=== PATIENT | female | born 1955 | race Caucasian/White ===

== ENCOUNTER 2019-08-23 17:01 | Inpatient (IN) | payer BC, MEDICARE ==
[~2019-08-23] VITALS: Ht 157.5 cm; Wt 61.5 kg
--- NOTE | 2019-08-24 11:38 | NUR ---
Pt arrived via stretcher, this nurse called SV to get report. Pt being settled in to room 339, on O2 @ 2 LPNC.
[2019-08-24 12:41] VITALS: BP 124/64; PULSE 73; TEMP 97.8
--- NOTE | 2019-08-24 13:10 | NUR ---
Dr. Lake aware of pt's admission. [facility] nurse just called report.
--- NOTE | 2019-08-24 13:12 | NUR ---
Spoke with Stephan at length about IPR routine, policies, and plan of care. He states they are very happy she is here. Denies any further questions.
[2019-08-24] MEDS ORDERED: PREDNISONE20 MG PO (14:08)
[2019-08-24] MEDS ORDERED: MESTINON 6060 MG/TAB PO (14:09)
[2019-08-24] MEDS ORDERED: PROAIR HFA0.09 MG/AC IH (14:10)
[2019-08-24] MEDS ORDERED: IPRATROPIUM BROM3 M1 IH (14:12)
[2019-08-24] MEDS ORDERED: 00186-0370-20 IH (14:15)
[2019-08-24] MEDS ORDERED: RT SPIRIVA18 MCG IH (14:16)
[2019-08-24] MEDS ORDERED: CALCIUM 600MG+D1 TAB PO (14:38)
[2019-08-24] MEDS ORDERED: COREG 25MG25 MG/TAB PO (14:42)
[2019-08-24] MEDS ORDERED: PLAVIX 75MG TAB75 MG PO (14:43)
[2019-08-24] MEDS ORDERED: ENTRESTO 49 MG1 EACH PO (14:43)
[2019-08-24] MEDS ORDERED: ZYRTEC10MGCHEW PO (14:43)
[2019-08-24] MEDS ORDERED: FERROUSAL325 MG PO (14:44)
[2019-08-24] MEDS ORDERED: PRILOSEC 20MG20 MG PO (14:45)
[2019-08-24] MEDS ORDERED: FLONASEALLERGY NS (14:45)
[2019-08-24] MEDS ORDERED: SINGULAIR 110 MG/TAB PO (14:45)
[2019-08-24] MEDS ORDERED: ALDACTONE 25MG25 M1 PO (14:46)
[2019-08-24] MEDS ORDERED: CRESTOR 10MG10 MG PO (14:46)
--- NOTE | 2019-08-24 18:05 | NUR ---
Visited w/ pt about IPR, see assessment, has gauze/tegaderm dressings to two IV sites removed at SV to rt neck, no shadowing. ENGINE ASSEMBLY SUPERVISOR reports buttocks/coccyx area reddened. Right heel has dry ruptured blister appearing linear lesion about 4 cm, applied foam heel cup under gripper socks. Pt has lizbeth foot drop, elevated BLE on pillows and propped up feet with pillow and shortened foot of bed. Call lt in reach, O2@ 2 LPNC, large amount of phlegm, tissues in reach. Pt states she has no appetite but knows she needs to eat, pureed diet, requested pills crushed in chocolate pudding. Asked to bring Crestor from home as our pharmacy subs with Lipitor and pt states it causes severe leg weakness. Has used bedpan x2 with lg loose stools per ENGINE ASSEMBLY SUPERVISOR.
[2019-08-25 05:42] VITALS: BP 162/72; PULSE 81; TEMP 97.6
--- NOTE | 2019-08-25 06:26 | NUR ---
PT HAS BEEN CONTINENT MOST OF THE NIGHT. CPAP IN USE.
[2019-08-25 06:56] LABS: BASO % 0.1 % (0.0-2.0); EOS # 0.1 (0.0-0.7); EOS % 0.7 % (0-4.0); GRAN # 6.5 (1.4-6.5); LYMPH % 12.1 % (20.0-51.0); MEAN CELL VOLUME 100 fl (80.0-100.0); MEAN CORPUSCULAR HGB CONC 32 g/dl (33.0-37.0); MEAN PLATELET VOLUME 9.8 fl (7.4-10.4); MONO # 0.8 (0.1-0.6); MONO % 9.3 % (1.7-9.3); PLATELET COUNT 274 K/mm3 (130-400); RED BLOOD COUNT 2.85 M/mm3 (4.10-5.30); REDCELL DISTRIBUTION WIDTH-CV 13.2 % (11.5-14.5)
[2019-08-25 07:10] LABS: CALCIUM 8.9 mg/dL (8.4-10.2); CREATININE, serum 0.39 (0.52-1.25); MAGNESIUM 1.8 mg/dL (1.6-2.3); PHOSPHOROUS 2.8 mg/dL (2.5-4.5); POTASSIUM 3.8 mmol/L (3.4-5.0)
[2019-08-25 07:19] LABS: HEMATOCRIT 28.5 % (37.0-47.0); HEMOGLOBIN 9.1 g/dl (12.5-16.0); MEAN CORPUSCULAR HEMOGLOBIN 32 pg (27.0-31.0)
--- NOTE | 2019-08-25 09:21 | NUR ---
PT IS LAYING IN BED WITH 02 @2L/NC. PRESENT AND VERY CARING TOWARD PT. MEDS CRUSHED AND GIVEN IN CHOCOLATE PUDDING BY SPOUSE.BREAKFAST ORDERED. MEPILEX IN PLACE ON COCCYX AREA. NIGHT NURSE STATES IT IS A STAGE II. LUNG SOUNDS ARE DIMINISHED IN ALL AAREAS, PRANEETH LOWER LUNGS VERY DIMINISHED WITH MINIMAL TO NO AIR MOVEMENT NOTED.
--- NOTE | 2019-08-25 10:16 | NUR ---
Patient lives at home with her (Antione Lancaster [phone]) in [place], [place] and ultimately plans to discharge home with her spouse upon recovery from inpatient rehabilitation services. Patient was admitted to [facility] on 07/31/19 and was then intubated and transferred to [facility] on 08/01/19. The patient has been very weak physically with signs of gradual improvement. Patient uses a wheelchair for mobility assistance and also uses a CPAP machine, her primary care physician is Dr. Wisdom, her pharmacy is [facility] ([place]), and she does not have advance directive for healthcare on file at this time. Patient's son (Will Lancaster [phone]) is supportive of patient's needs as well. No further needs and social media marketing analyst will follow as needed.
--- NOTE | 2019-08-25 13:05 | NUR ---
PT'S PERITONEAL AREA IS REDDISH WITH PEELING SKIN. AREA CLEANED AND BARRIER CREAM PLACED. CALL LIGHT IN REACH
--- NOTE | 2019-08-25 14:59 | NUR ---
DID BIM SCORE WITH PT. PLACED IN CHART FOR ST. PT GIVEN ADMISSION PAPERWORK TO READ AND SIGN. SHE WANTS TO WAIT FOR HER TO READ INFORMATION.
[2019-08-25 16:40] VITALS: BP 126/57; PULSE 65; TEMP 98.1
[2019-08-26 04:04] VITALS: BP 145/78; PULSE 76; TEMP 97.4
--- NOTE | 2019-08-26 06:05 | NUR ---
PT IN BED. PT HAS CALLED FOR USE OF BEDPAN. CPAP IN USE UNTIL APPROX. 0430. O2 CONTINUES AT 2 liters/NC.
--- NOTE | 2019-08-26 12:53 | NUR ---
Returned pt's own meds to Stephan to take home, except for omeprazole and crestor. Pt inserted upper partial plate with enc to do so.
--- NOTE | 2019-08-26 17:47 | NUR ---
Pt adv to [facility] soft, ordered turkey and sweet potatoes, needed more gravy and maybe butter for next time, asked about ensure and given mixed with jero ice cream. Pills crushed in puree.
[2019-08-26 18:00] VITALS: BP 120/56; PULSE 93; TEMP 98.1
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
--- NOTE | 2019-08-27 02:19 | NUR ---
Resting in bed with eyes closed. No signs or symptoms of discomfort. Asked patient if she needed anything or wanted to reposition. Assisted patient in repositioning pillows. Patient denies further needs at this time. Head of bed remains elevated at approximately 80 degrees. Side rails are up, call light in reach.
[2019-08-27 05:00] VITALS: BP 146/56; PULSE 66; TEMP 98.7
--- NOTE | 2019-08-27 05:54 | NUR ---
Resting in bed with eyes closed. Opens eyes when name called out. Denies pain or any concerns at this time.
--- NOTE | 2019-08-27 06:08 | NUR ---
Uneventful through night. Able to verbalize when she needs to use bedpan to urinate and have bowel movement. Denies pain at this time. Tolerated CPAP throughout night with little difficulty once mask was adjusted properly. Expresses that she is tired this morning. Denies any further needs at this time.
--- NOTE | 2019-08-27 06:59 | NUR ---
Report provided to ANNALISA Lunsford.
--- NOTE | 2019-08-27 15:05 | NUR ---
Initial visit; Patient thanked Applied Computer Science Professor for looking in on her and offering encouragement and God's blessings. Patient was receptive to Applied Computer Science Professor keeping her in her prayers.
--- NOTE | 2019-08-27 15:59 | NUR ---
IV placed to left AC using 20 G needle. Patient went to have her CT scan completed and has now returned to her room. Awaiting results of scan.
[2019-08-27 17:47] VITALS: BP 149/61; PULSE 63; TEMP 98.9
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
--- NOTE | 2019-08-27 21:30 | NUR ---
Patient rests in bed and reports achyness from use of sit to stand lift to bilateral shoulders. HS meds along with tylenol reviewed and given crushed in pudding. Is familiar with HS meds. Powder applied to redness/peeling rash inner thighs and dario area after up via lift to BSC. BLE elevated on pillow and folded pillow to foot of bed to aid/prevent further foot drop.
--- NOTE | 2019-08-27 23:00 | NUR ---
CPAP applied with 2l bleed in o2. Patient reports tylenol helped for pain.
--- NOTE | 2019-08-28 03:03 | NUR ---
Patient rests with eyes closed. Respirations with ease.
--- NOTE | 2019-08-28 05:00 | NUR ---
Awakened for am med and cpap removed oxygen applied 2 Lpnc. Up to BSC via lift and voids. Back to bed and nurse assists with legs and reposition up in bed. Denies pain. Applies clean shirt and nurse applied pants for therapy.
[2019-08-28 05:24] VITALS: BP 152/66; PULSE 78; TEMP 99
--- NOTE | 2019-08-28 08:00 | NUR ---
PT ALERT AND ORIENTED X4. PT HAS FLAT AFFECT AND APPEARS DEPRESSED. PT HAS 2L O2 VIA NC AT THIS TIME. PT'S LUNGS NOTED TO HAVE RHONCHI AND EXP WHEEZE NOTED PRIOR TO BREATHING TREATMENT. SLIGHT EXP WHEEZE TO RIGHT BASE NOTED AFTER NEB TREATMENT. PT HAS PRODUCTIVE COUGH WITH THICK, YELLOW SPUTUM NOTED. NO EDEMA NOTED. PT DOES HAVE SLIGHT BILATERAL FOOT DROP.
--- NOTE | 2019-08-28 08:46 | NUR ---
DR ROBERTS NOTIFIED OF PULMONOLOGY CONSULT
--- NOTE | 2019-08-28 11:20 | NUR ---
[facility]
--- NOTE | 2019-08-28 13:20 | NUR ---
Reviewed Team Conference notes w/ pt, who stated she understood & agreed with the information. Informed her the team has not set a d/c date since she has only been here a few days, so will re-evaluate her progress next Monday. She was fine with this. Inquired if pt had any questions/concerns at this time, which she did not.
--- NOTE | 2019-08-28 14:30 | NUR ---
PT BEING PLACED ON IV ATB. 20G IV INSERTED TO LEFT HAND.
[2019-08-28 18:20] VITALS: BP 127/56; PULSE 65; TEMP 98
--- NOTE | 2019-08-28 21:00 | NUR ---
Patient rests in bed denies pain. HS meds along with tylenol for pain prevention reviewed and given crushed in pudding. Patient does HS care at bedside with set up. Up to BSC 2 assist pivot transfer. Is weak with pivot transfer back to bed and max 2 assist. Powder applied to reddened inner thighs and dario-area. BLE elevated on pillow and folded pillow placed at end of bed for further foot drop prevention.
[2019-08-28 21:56] LABS: PROCALCITONIN 0.02 ng/mL (0.00-0.09)
--- NOTE | 2019-08-29 02:29 | NUR ---
patient has been resting with eyes closed. CPAP on.
[2019-08-29 05:39] VITALS: BP 140/56; PULSE 65; TEMP 98.1
--- NOTE | 2019-08-29 15:41 | NUR ---
Attempted to visit w/ pt's while he was visiting but missed him. Contacted him via phone & provided him an update from the Team Conference. He stated he understood & felt like she has made a lot of progress. He also stated he is very pleased w/ the care she is receiving. Informed him that no d/c date has been set & will re-evaluate next week. Also told him that [employer] was update today & received another week certified. Asked if he had any questions/concerns at this time, which he did not.
[2019-08-29 16:59] VITALS: BP 146/63; PULSE 67; TEMP 97.6
--- NOTE | 2019-08-29 19:35 | NUR ---
Report from ANNALISA Peñaloza. Pt transferring with sit to stand lift, legs weak and may give out, two assist to BSC or pt rolls in bed for bedpan. Continent, calls appropriately. Plan to insert PICC tomorrow morning, pt signed consent, present and SUNIL Gomez RN answered questions. Pt c/o nausea after breakfast, offered TUMS, maalox given instead. Imodium given for loose stool after lunch. Reported to Dr. Holguin, ID. Yeast to dario area appears 50% improved with Desenex powder, still red but less peeling/moist. Doffed bottoms at suppertime to air. Floated heels on pillow, heel protector to rt heel, pillow to prop for lizbeth foot drop. Rt lungs squeaky. Supplemented poor eating with ensure. Report to ANNALISA Zapien.
--- NOTE | 2019-08-29 21:00 | NUR ---
PT SITTING UP IN BED. A&OX4. O2 2L NC. NO RESP DISTRESS. USING RESP PICKLE PRN. PT RELATES USUALLY HAS BILAT SHOULDER PAIN BUT NOT NOW. IV TO LT HAND POSITIONAL. NS FLUSHES SLOWLY. HAS SOME OLD BLOOD UNDER TEGADERM WITH SOME ECCYMOSIS NOTED. NO PAIN. IV ABT INFUSING. ACCUCHECK WNL. NO SSI. TOOK 50% OF CHOCOLATE ENLIVE. CARLOZ RECTAL AREA INFLAMED. LEFT DIAPER/BRIEFS OFF FOR HEALING. PT USED BEDPAN. HAD URINE WITH LOOSE STOOL. GAVE IMMODIUM. SEE MAR. DESENEX POWDER APPLIED AFTER CLEANING. CALL LIGHT IN REACH. BED ALARM SET.
--- NOTE | 2019-08-29 22:04 | NUR ---
IV TO LT HAND LEAKING BLOOD. NO LONGER IN VEIN. COMPLETED IV ANTIBIOTIC BEFORE INFILTRATION. WILL START 0230 DOSE TO NEW SITE AT THAT TIME.
--- NOTE | 2019-08-30 02:22 | NUR ---
RESTARTED INT NEEDLE 22GA X1 ATTEMPT PER ELZBIETA CHARGE NURSE. IV ABT STARTED WITHOUT DIFFICULTY.
[2019-08-30 05:29] VITALS: BP 142/52; PULSE 74; TEMP 98
--- NOTE | 2019-08-30 05:40 | NUR ---
PT VOIDED PER BEDPAN. PERIRECTAL AREA STILL RED. CLEANED AND DRY. POWDER APPLIED. CHANGED INTO GOWN FOR PROCEDURE THIS AM. CPAP OFF AT THIS TIME. O2 2L N/C STARTED. PT DENIES NEED FOR PAIN MED. PT ALITTLE AGITATED THIS AM. CALL LIGHT IN REACH. BED ALARM SET.
--- NOTE | 2019-08-30 10:45 | NUR ---
Followed up on request for medical records from [facility]. Saw nurse Ritika's note, called MR and they will fax records/reports to [facility], then staff transferred call to staff who uploads to the cloud. Requested Chest x-rays and CTs and an echo that was done in July per Dr. Lezama's and Dr. Holguin's request.
--- NOTE | 2019-08-30 11:31 | NUR ---
Discussed with lab and then notified Dr. Hummel's office that hospital is unable to do ACHR Blocking antibodies nor voltage-gait calcium antibodies tests. Aware. He will f/u these labs as OP.
[2019-08-30 19:20] VITALS: BP 144/57; PULSE 66; TEMP 98.2
--- NOTE | 2019-08-31 04:00 | NUR ---
At bedside to give IV ABX. Wearing CPAP; no complaints or concerns at this time.
[2019-08-31 05:40] VITALS: BP 150/60; PULSE 72; TEMP 97.7
--- NOTE | 2019-08-31 07:32 | NUR ---
Report given to ANNALISA Jo. Patient care transfered.
--- NOTE | 2019-08-31 10:07 | NUR ---
Patient currently at group therapy at this time. Patient used call light this morning and wanted to be scooted up in bed. This nurse asked her if she was able to help with this task and she said that she was not. She was a two assist with scooting her up in bed so that she could eat her breakfast. Patient required a sit to stand when transferring to the [facility]. She uses her call light effectively. Denies pain this am. Will continue to monitor.
[2019-08-31 10:11] LABS: TB GOLD INTERPRETATION Negative (Negative)
--- NOTE | 2019-08-31 11:49 | NUR ---
Patient's is visiting at this time. Patient is lying in bed, alarm on, call light in reach awaiting her lunch. Patient was with therapy this morning so did not get a chance to drink her nutrition drink. She said that she would try to drink it later today. reported that he feels his is not ready to go home yet and was nervous about what the insurance companies will say about her being able to continue with therapies here. This nurse visited with patient and about this and they know that if she is making progress she will more then likely be able to continue to stay for aother week. But they were told that it is dependent on the insurance companies. They voiced understanding. Will continue to monitor.
[2019-08-31 17:21] VITALS: BP 154/60; PULSE 68; TEMP 98.4
--- NOTE | 2019-08-31 18:20 | NUR ---
Patient requested for this nurse to get her a warm wash cloth, hand towel, toothbrush and toothpaste so she could clean her partials and brush her teeth. Patient is currently do all the cleaning herself - required set up only.
[2019-09-01 04:42] VITALS: BP 162/61; PULSE 64; TEMP 97.3
--- NOTE | 2019-09-01 05:05 | NUR ---
Patient slept well overnight, remained alert and oriented throughout the shift. Patient has denied pain when questioned. Patient used sit to stand lift to void, she was continent. IV antibiotics administered per order into her double lumen PICC line. Patient denied needs at this time, call light within reach.
--- NOTE | 2019-09-01 13:06 | NUR ---
Patient resting in bed at this time, call light in reach and bed alarm is on. Patient tolerating diet well this shift. Denies quetions at this time.
[2019-09-01 16:31] VITALS: BP 149/56; PULSE 66; TEMP 97.6
--- NOTE | 2019-09-01 19:58 | NUR ---
Patient was a myb-uv-[id number] lift with transfers to the toilet multiple times today. She had two brown soft BM's today and required staff to wipe her. Powder placed on dario area. IV ABT was given as ordered. Patient has been taking small pills whole with applesauce and still having her larger pills crushed. Reported off to night nurse.
--- NOTE | 2019-09-01 20:30 | NUR ---
PT RESTING IN BED. O2 2L NC. NO RESP DISTRESS. GENERALIZED WEAKNESS WITH ACHINESS. SEE MAR FOR PAIN MEDS. BORA PICC FLUSHES WELL. PERIRESTAL YEAST INFECTION IMPROVING WITH DESENEX POWDER AFTER CARLOZ CARE. SEE COMPLETED ASSESSMENT. CALL LIGHT IN REACH. BED ALARM SET.
[2019-09-02 05:32] VITALS: BP 149/64; PULSE 65; TEMP 98.2
--- NOTE | 2019-09-02 05:48 | NUR ---
PT NOW OFF CPAP AND ADDED 1L NC O2. PT RETURNS TO SLEEP. CALL LIGHT IN REACH. BED ALARM SET. DENIES NEEDS.
--- NOTE | 2019-09-02 08:09 | NUR ---
Report from ANNALISA Zapien. Pt ate breakfast in bed, max assist with donning briefs and pants while pt turned in bed. Rt heel protector in place, dry lesion intact, gripper socks on, O2 @ 2l PNC. Pt took all morning pills whole, one at a time in applesauce, except crushed large calcium tab.
--- NOTE | 2019-09-02 13:15 | NUR ---
Visited w/ pt. She stated the weekend was long but okay. She did inquire about being able to stay longer & explained that SW will send updated information on her progress to insurance on but shouldn't be a problem as long as she continues to make progress. Will continue to visit w/ pt & provide support & d/c planning.
[2019-09-02 18:25] VITALS: BP 145/62; PULSE 65; TEMP 98.6
--- NOTE | 2019-09-02 20:05 | NUR ---
Pt advanced to general diet, assisted with cutting up grilled chicken breast. Pt in bed with SCDs to BLE and heel protector to RLE and pillow propping up for foot drop, call lt in reach. Report to ANNALISA Peñaloza.
--- NOTE | 2019-09-02 20:45 | NUR ---
HS meds all reviewed and taken whole 1 at a time without problems. Applesauce given in case needs to utilize to aid with swallow. Rests in bed. RT in and applied CPAP for the night. Denies pain or needs.
--- NOTE | 2019-09-03 02:02 | NUR ---
Patient has been resting with eyes closed. Awakened for IV antibiotic and returns to resting.
--- NOTE | 2019-09-03 05:00 | NUR ---
Awakened for vitals and uses bedpan per PROJECT ANALYST. Denies further needs. Returns to resting with eyes closed.
[2019-09-03 05:13] VITALS: BP 157/64; PULSE 67; TEMP 98.2
--- NOTE | 2019-09-03 11:12 | NUR ---
Patient attending therapies at this time. Patient was given antibiotic this morning, tolerated well. Denied pain this AM. Denied questions. Will continue to monitor.
--- NOTE | 2019-09-03 15:25 | NUR ---
Patient resting in bed at this time, call light in reach and just unhooked her IV ABT and flushed picc line. Patient tolerated with no discomfort observed. Patient denies pain at this time.
[2019-09-03 15:27] VITALS: BP 123/57; PULSE 74; TEMP 98
--- NOTE | 2019-09-03 17:00 | NUR ---
Patient educated on the need to not use the bed de jesus with her. she voiced understanding. Staff was instructed to elevate the bed when transferring from the bed to standing position using the walker. This nurse brought in a different stool riser and elevated it to a higher postion so that when she transferred from toilet to standing position it would be easier for her to have leverage to stand. Patient voiced understanding. Staff was educated on this.
--- NOTE | 2019-09-03 18:05 | NUR ---
Patient attended all therapies today. She is currently lying in bed with by her side. Call light in reach and bed alarm is on.
--- NOTE | 2019-09-03 20:00 | NUR ---
HS meds all reviewed along with tylenol for pain and takes 1 at a time without problems. Assisted up 2 assist to BSC and bears wt/pivots well. Patient removes pants and attends and applies new pullup/takes more time but does with encouragement. Patient was able to pull attends up most of the way. Rests self back in bed. BLE elevated on pillow. Takes 95% of enlive for snack.
--- NOTE | 2019-09-03 23:00 | NUR ---
Rests in bed with cpap on. States tylenol helped for pain.
[2019-09-04 05:27] VITALS: BP 155/60; PULSE 65; TEMP 98.9
--- NOTE | 2019-09-04 05:45 | NUR ---
Patient rested with eyes closed/cpap on other than awakened for IV med.
--- NOTE | 2019-09-04 12:35 | NUR ---
Pt was wanting to leave for a while, so reviewed the Team Conference notes w/ him. Informed him the team feels pt continues to make progress, which he stated he was glad to hear & he feels she has been progress. Informed him the team would like to re-evaluate again next Monday & schedule a Family Conference afterwards. He state that would be fine w/ him. He was very relieved to know she would be staying another week. Did remind him that SW needs to send update to insurance tomorrow but don't see why they would not give us another week. He again was relieved & happy to hear.
--- NOTE | 2019-09-04 16:45 | NUR ---
Reviewed Team Conference notes w/ pt. She stated she understood & agreed w/ current level of functioning. Informed her that we have not set a d/c date but will re-evaluate next Monday, which she was fine w/. Told her SW had talked to her earlier & have tentatively scheduled for a pt/family conference next Monday. She had no questions/concerns at this time.
[2019-09-04 18:00] VITALS: BP 156/60; PULSE 75; TEMP 98
--- NOTE | 2019-09-04 18:00 | NUR ---
Patient was transferred multiple times today with just a pivot transfer using gait belt. It still took two staff members at times. Patient able to pull pants up and down herself.
--- NOTE | 2019-09-04 18:50 | NUR ---
Patient attended all therapies today. Tolerate antibiotics this shift. No episodes of nausea today. Denied pain. Patient had a family meeting this afternoon and voiced that it went well. Patient's dario area continues to improve not as red. Will continue to use Desenex powder. Right heel old blister has not changed in shape and there are no signs of irritation today. she continues to wear her heel protector. Patient tolerating her regular diet and has been taking her pills whole with applesauce or just water. The one larger pill she does still like to have it crushed and placed in applesauce.
--- NOTE | 2019-09-04 21:00 | NUR ---
PT RESTING IN BED AFTER USING SIT TO STAND LIFT FOR BSC. VOIDING WITHOUT DIFFICULTY. RT GROIN/CARLOZ AREA STILL SL PINK FROM YEAST INFECTION BUT IMP[ROVING. WEARING BRIEFS FOR OCCATIONAL STRESS INCONTINENCE. TYLENOL GIVEN FOR GENERAL ACHES PER REQUEST. CALL LIGHT IN REACH. BED ALARM SET.
[2019-09-05 06:08] VITALS: BP 159/66; PULSE 71; TEMP 98.3
--- NOTE | 2019-09-05 11:20 | NUR ---
Report from ANNALISA Zapien. Pt ate breakfast in bed sitting up. On room air. Tylenol given for back pain 2/10 at breakfast. PICC without complications. Pt requested large Oscal tab be split in half, taken with applesauce, had mild difficulty with omeprazole capsule that she wanted to attempt to swallow whole. Pt states SCDs were on in the night. Alert, pleasant.
[2019-09-05 11:48] LABS: ANTI MUSK ANTIBODY XXX
[2019-09-05 15:00] VITALS: BP 141/58; PULSE 70; TEMP 98.3
--- NOTE | 2019-09-05 19:39 | NUR ---
Pt's family visited today. Pt pivot transferred to BSC, continent, tylenol for pain, remained on room air through shift. Discussed with Dr. Calix how to transition pt off/home with CPAP as she did not use one at home, will f/u with SW tomorrow.
[2019-09-06 03:58] VITALS: BP 152/58; PULSE 63; TEMP 98.4
--- NOTE | 2019-09-06 07:55 | NUR ---
Report from ANNALISA Zapien. Pt ate sitting up in bed, set up for oral cares, glasses in place, pt reports wearing SCDs prior to now. Cont to need set up assist for meals to open some containers. A&O, pleasant, tylenol for pain 02/03. Call lt in reach, bed alarm on, IV abx infusing to PICC which is working well.
--- NOTE | 2019-09-06 12:00 | NUR ---
PICC intact right upper arm with sterile dressing change done with insertion site cleansed with chloraprep x 1, chlorhexidine impregnated disk applied, skin prep, stat lock, and tegaderm applied. no signs or symptoms of IV complications noted. no concerns voiced. re-wrapped with tiffani to protect catheter.
[2019-09-06 17:03] VITALS: BP 172/66; PULSE 70; TEMP 98.7
--- NOTE | 2019-09-06 19:43 | NUR ---
Report to ANNALISA Bailey. Pt's visited today, pt pivot transferred with STOCK CUTTER to BSC this shift. Took pills with thin liquids or ate puree after. In bed, alarm on, call lt in reach.
--- NOTE | 2019-09-07 00:40 | NUR ---
WAS TOLD IN REPORT THAT THE PT DOESN'T HAVE A CPAP AT HOME. THEREFORE; PT DOES NOT NEED TO WEAR THE CPAP. I DISCUSSED WITH PT THAT IF SHE FELT COMFORTABLE WITHOUT WEARING THE CPAP TONIGHT THAT SHE IS NOT REQUIRED TO WEAR IT. HOWEVER, IF SHE FELT THAT SHE NEEDS TO WEAR IT SHE CAN CALL THE NURSE AND I CAN COME PUT IT ON HER IF NEED BE.
--- NOTE | 2019-09-07 02:30 | NUR ---
PATIENT DOING WELL TONIGHT. ALERT AND ORIENTED. DENIES PAIN AT THIS TIME. ABX INFUSING IN BORA PICC LINE. PICC LINE FLUSHING GOOD BOTH LINES. PATIENT UP TO COMMODE AND HAD BLACK SMALL HARD BM. SEE ASSESSMENT. NO FURTHER NEEDS AT THIS TIME.
[2019-09-07 04:06] VITALS: BP 157/61; PULSE 73; TEMP 98.5
--- NOTE | 2019-09-07 16:30 | NUR ---
PT HAS DONE WELL TODAY. VOICED NO COMPLAINTS OF PAIN OR NAUSEA. HAS NAPPED THIS AFTERNOON. ATE ALMOST NO BREAKFAST THIS AM. LUNCH SHE DID WELL. ABLE TO STAND AND SHE IS PRETTY STEADY WITH STANDING. ABLE TO CLEAN HERSELF AFTER TOILETING. TRANSFERS WELL TO BED AND NEEDS SOME ASSIST TO BRING BOTH LEGS INTO BED.
--- NOTE | 2019-09-07 16:35 | NUR ---
PICC LINE TO RIGHT UPPER ARM FLUSHED BRANDON TODAY BUT IT DID FLUSH. GOOD BLOOD RETURN EVEN IF SLUGGISH
[2019-09-07 17:05] VITALS: BP 151/66; PULSE 71; TEMP 98.6
--- NOTE | 2019-09-08 01:43 | NUR ---
PATIENT DOING WELL TONIGHT. TRANSFERRED TO BEDSIDE COMMODE AND HAD SMALL BROWN FORMED BM. PATIENT ALSO HAD UNMEASURED VOID. MINIMAL REDNESS NOTED TO PERIAREA, PT REFUSED DESENEX POWDER AT THIS TIME. REFUSED HER SCDS ALL NIGHT. PICC LINE TO BORA PATENT AND FLUSHES WITH GOOD BLOOD RETURN IN BOTH LINES. DENIES PAIN. WILL CONTINUE TO MONITOR.
[2019-09-08 04:33] VITALS: BP 166/70; PULSE 70; TEMP 98.1
--- NOTE | 2019-09-08 08:34 | NUR ---
Report from ANNALISA Bailey. Pt eating breakfast in bed, alarm turned on, glasses and partial plate in place, yellow wristband in place, call lt in reach. Took pills whole with thin liquids, Oscal cut in half, applesauce as needed for pills. Brought oral hygiene items to tray. PICC without complications.
--- NOTE | 2019-09-08 11:18 | NUR ---
Pt was assisted to BSC by JANITOR CUSTODIAN, pt managed toileting tasks with set up, returned to bed per pt request, visitors here. Tylenol for pain.
[2019-09-08 16:19] VITALS: BP 160/74; PULSE 64; TEMP 97.7
--- NOTE | 2019-09-08 19:11 | NUR ---
Pt in bed, alarm on, call lt in reach. Tylenol for pain at supper time. Report to ANNALISA Bailey.
--- NOTE | 2019-09-09 01:54 | NUR ---
PATIENT DOING WELL TONIGHT. HAS BEEN UP TO BEDSIDE COMMODE X1 ASSIST. HAD UNMEASURED VOID. RETURNED TO BED. PATIENT DENIES PAIN AT THIS TIME. RUE PICC LINE FLUSHED AND HAD BLOOD RETURN. SEE ASSESSMENT. NO FURTHER NEEDS AT THIS TIME.
[2019-09-09 03:13] VITALS: BP 167/65; PULSE 92; TEMP 97.5
--- NOTE | 2019-09-09 08:50 | NUR ---
Assessment completed, alert/oriented, vital signs stable, denies pain or discomfort, report her cough is improving and is producing less sputum/ reports what she is still couhging up is now just a light pale yellow, lungs are CTA/ diminshed bases with a little coarsness to LLL, encouraged deep breathing and flutter valve use, IV abx given via her PICC line/ 2 more days of abx tx left, she is up in chair and has had breakfast, PT in now to work with her
--- NOTE | 2019-09-09 14:05 | NUR ---
Visited w/ pt. She stated she had a good weekend & had several visitors, including her sister who brought her pagan. Pt had questions about the pt/family conference & what it was about, so explained it to her. Pt was very up beat today & talkative. Will continue to follow & provide support.
--- NOTE | 2019-09-09 14:39 | NUR ---
Contacted pt's , Stephan, & spoke w/ him about the pt/family conference on 09/11/19. Asked him if 10:30 am would work for him & he told SW that it would.
[2019-09-09 15:50] VITALS: BP 163/62; PULSE 71; TEMP 98.4
[2019-09-10 03:50] VITALS: BP 157/63; PULSE 73; TEMP 97.5
--- NOTE | 2019-09-10 04:10 | NUR ---
Patient has rested well this night. Requires one assist with transfers and ambulation to the bathroom. Denies pain throughout shift. Takes medications whole with no difficulty. PICC to BORA. Lung sounds diminished and productive cough noted. Patient states the cough is reducing in frequency. Will continue to monitor.
[2019-09-10 16:04] VITALS: BP 150/58; PULSE 66; TEMP 98.1
--- NOTE | 2019-09-10 16:33 | NUR ---
Patient resting in bed at this time, call light in reach and bed alarm is on. Patient denied pain at this time. Tolerating diet well. Attended all therapies today.
--- NOTE | 2019-09-10 19:53 | NUR ---
Maria is currently resting in bed, call light in reach and bed alarm is on. Patient was a pivot transfer from bed to BSC and BSC to bed with one person, gait belt and walker. Patient wearing a brief and does have some urge incontinence at times, was able to wipe herself. She ate her food independently.
--- NOTE | 2019-09-10 22:00 | NUR ---
Patient up to BSC mod one assist with walker. Legs weak from sit to stand. Voids and manages all toileting tasks. Rests back in bed. HS meds along with tylenol reviewed and given. SCD's on. Declines snack and HS care at this time.
--- NOTE | 2019-09-11 01:14 | NUR ---
PT DOES NOT HAVE A CPAP AT HOME AND DOESN'T FEEL THE NEED TO KEEP ONE IN HER ROOM IF SHE DOESN'T NEED TO USE IT. THEREFORE THE CPAP OF OURS WAS TAKEN OUT OF THE PT ROOM. PT WAS FINE ON RA THOMAS WELL NO DISTRESS NOTED WILL CONTINUE TO MONITOR AND ASSESS
[2019-09-11 03:21] VITALS: BP 163/60; PULSE 63; TEMP 98.5
--- NOTE | 2019-09-11 03:29 | NUR ---
PATIENT UP TO BSC "THINK I'VE BEEN RESTING".
--- NOTE | 2019-09-11 10:30 | NUR ---
A Family Conference was conducted with pt & her , Stephan. Also present was PT, OT, ST, & Manager Park/SW. Manager Park/SW started by explaining the purpose of the meeting. The therapists explained how pt has been functioning & making good progress, which they were very pleased to hear. Informed them the team would like to re-evaluate again next Monday, which they were fine w/. They asked questions which team answered. Pt & family are pleased with progress & care pt is receiving.
[2019-09-11 15:57] VITALS: BP 148/60; PULSE 60; TEMP 98.3
--- NOTE | 2019-09-11 19:31 | NUR ---
Patient resting in bed at this time. She attended all therapies today, call light in reach and bed alarm is on. Maria denied pain this shift. She had her last dose of her antibiotic. This nurse received a call from Infectious Disease physician and he said to make sure to watch for any increased coughing or shortness of breath with patient following this last dose. This nurse voiced understanding. This was communicated to the night nurse. Patient has had some coughing today, but very minmal and sputum is now clear and no longer yellow. Will continue to monitor.
--- NOTE | 2019-09-11 21:00 | NUR ---
HS meds all reviewed and given along with tylenol for mild pain across back. Patient up with assist to BSC and voids/manages all toileting tasks. Has much difficulty standing after multiple attempts and heavy mod assist to stand. Rests self back in bed. Nurse noted patchy light red rash all over back but none to frontal or extremities. Powder applied. Will monitor.
--- NOTE | 2019-09-12 02:46 | NUR ---
PATIENT HAS BEEN RESTING WITH EYES CLOSED. RESPIRATIONS WITH EASE.
[2019-09-12 05:14] VITALS: BP 169/71; PULSE 62; TEMP 98.2
--- NOTE | 2019-09-12 05:17 | NUR ---
PATIENT STATES "I MUST HAVE SLEPT". UP TO BSC AND BACK TO BED. DENIES PAIN.
--- NOTE | 2019-09-12 08:00 | NUR ---
SEE SHIFT ASSESSMENT.
[2019-09-12 08:21] LABS: MYASTHENIA GRAVIS ACHR BINDING XXX; MYASTHENIA GRAVIS ACHR MODULA XXX
--- NOTE | 2019-09-12 09:57 | NUR ---
DR. MARTIN CALLED AND NOTIFIED OF RASH THAT IS ON THE PATIENTS BACK. IT STARTED OVERNIGHT AND IS NOW WRAPPING AROUND THE PATIENTS SIDED AND UNDERNEATH HER BREASTS. PATIENT STATES THAT IT IS NOT CURRENTLY ITCHING, BUT THAT IT WAS ITCHY LAST NIGHT.
[2019-09-12 18:00] VITALS: BP 142/53; PULSE 64; TEMP 97.5
--- NOTE | 2019-09-12 18:59 | NUR ---
REPORT GIVEN TO ANNALISA BREWSTER.
--- NOTE | 2019-09-13 01:55 | NUR ---
PATIENT DOING WELL TONIGHT. TOOK SCHEDULED MEDS WITHOUT ISSUE. REQUESTED TYLENOL FOR MILD PAIN. PICC TO BORA IS PATENT AND FLUSHES WITH GOOD BLOOD RETURN. RASH TO BACK NOTED, NO SIGNIFICANT CHANGES. WILL CONTINUE TO MONITOR.
[2019-09-13 03:37] VITALS: BP 176/65; PULSE 72; TEMP 97.8
[2019-09-13 16:38] VITALS: BP 164/58; PULSE 58; TEMP 98
--- NOTE | 2019-09-14 02:56 | NUR ---
PT SLEEPING. NO RESP DISTRESS.
[2019-09-14 05:46] VITALS: BP 170/62; PULSE 63; TEMP 98.7
[2019-09-14 15:54] VITALS: BP 178/63; PULSE 59; TEMP 97.8
--- NOTE | 2019-09-14 16:47 | NUR ---
Report from ANNALISA Zapien. Pt attended group therapy in wheelchair. Flonase and tylenol given per pt request. Desenex powder to rash on back appears to be resolving. TECHNOLOGY AUDITOR assisted pt to BSC. Sputum is light yellow, mucousy and moderate amounts. Visitors came today. On RA all day.
--- NOTE | 2019-09-14 17:09 | NUR ---
Stephan arrived for visit.
--- NOTE | 2019-09-14 17:53 | NUR ---
Pt off unit in wheelchair with Stephan
--- NOTE | 2019-09-14 19:54 | NUR ---
A&OX4. RESTING IN BED. ASISTED WITH HS CARES. TRANSFERRED TO BSC. UNSTEADY. VOIDED CLEAR JESUS URINE. HAS GENERAL ACHES. WANTS TYLENOL AT HS. BACK TO BED. SEE SHIFT ASSESSMENT. READY FOR BED. CALL LIGHT IN REACH. BED ALARM SET.
[2019-09-15 06:26] VITALS: BP 166/70; PULSE 65; TEMP 98.2
--- NOTE | 2019-09-15 08:34 | NUR ---
Report from ANNALISA Zapien. Pt calls to toilet, continent of per MAURILIO Wilder. Set up for oral cares, own Gold Coello powder to back, rash improved, slight splotchy areas to flank, not raised. Tylenol for mid back ache. Takes pills one at a time with applesauce. Reviewed with pt how to call room service and ask what alternatives are available.
[2019-09-15 16:28] VITALS: BP 156/56; PULSE 61; TEMP 98.2
--- NOTE | 2019-09-15 18:39 | NUR ---
Pt called to toilet, pivot to BSC per MAURILIO Wilder. Meño states earlier today when pt attempted returning to bed after lunch pt's legs gave out and would have fallen.
--- NOTE | 2019-09-15 20:36 | NUR ---
Report received from ANNALISA Stuart. Patient resting in bed. Assessment complete. Patient up to BSC. Requesting tylenol. Patient assisted back into bed. PM medications given as well as tylenol. Now ready for bed. Call light within reach. Bed alarm on.
--- NOTE | 2019-09-16 05:45 | NUR ---
Patient had uneventful night. Resting in bed. Up to BSC x2. One small formed BM. Denies pain and only requested tylenol once at beginning of shift. Bed alarm on. Call light within reach.
[2019-09-16 06:08] VITALS: BP 181/64; PULSE 62; TEMP 97.9
--- NOTE | 2019-09-16 07:02 | NUR ---
Report given to ANNALISA Lunsford
--- NOTE | 2019-09-16 07:58 | NUR ---
Patient reports sleeping pretty well last night. Patient reported a rash over the weekend on her back, but Dr. Calix observed this morning and no rash was seen. Patient has had some itching to the area and she has been putting on Desenex power with good effect. No redness or rash was seen this morning. Patient able to take pills a few at a time with just sips of water. Requesting some Tylenol this morning reporting some back pain. Will continue to monitor.
--- NOTE | 2019-09-16 09:47 | NUR ---
Patient reported to PT this morning that she was not liking the meals. Patient has been eating over 50% of her meals as was observed over the weekend. Dietary was called to discuss menu with patient. Patient was wondering what the alternative menu was for her to choose from. Isatu in Dietary will address these questions. Patient did report some middle of the back pain, and was given prn pain Tylenol. She is currently resting in bed, call light in reach and bed alarm is on.
--- NOTE | 2019-09-16 11:00 | NUR ---
SW attempted to meet with the patient, the patient was out to physical therapy. SW will continue to follow.
[2019-09-16 16:54] VITALS: BP 158/65; BP 1582/65; PULSE 62; TEMP 98.6
--- NOTE | 2019-09-16 21:00 | NUR ---
Patient returned to bed via wheelchair from the bathroom. Alert and oriented x 4. Reports pain in between her shoulders and tylenol reviewed and given with HS meds. Declines snack or needs at this time.
--- NOTE | 2019-09-17 02:43 | NUR ---
Patient has been resting quietly in bed. Respirations with ease.
[2019-09-17 04:04] VITALS: BP 160/61; PULSE 60; TEMP 97.3
--- NOTE | 2019-09-17 06:20 | NUR ---
Reports she slept well through the night. Denies needs.
--- NOTE | 2019-09-17 08:12 | NUR ---
Patient resting in bed at this time, call light in reach awaiting for therapy to arrive. Denies pain at this time.
--- NOTE | 2019-09-17 11:40 | NUR ---
At 11:40 AM patient Jumana Lancaster had an assisted fall to the floor. She was in her patient room and NUVIA Peralta was assisting patient from bed side commode to a standing position to transfer patient to her bed. Patient was rocking back and forth or back to front to get momentum to stand up from bed side commode and when she started standing her legs gave out on her. NUVIA/Kathryn held on to patient's gait belt and lowered patient to the floor slowly on her bottom. Patient was then assisted by NUVIA/Kathryn to a standing position. Kathryn reported that she stood behind the patient and squatted down and used her legs to assist patient up in a standing position. Patient was able to assist with standing, but aid reported that she used 80% of her strength to assist patient. Kathryn reported that she would have called for assistance if she felt that she needed help with lifting patient. Patient then used her walker and returned to her bed to eat lunch with the aid Kathryn. This nurse assessed patient and she reported that she did not fall, but rather just was guided down to the floor and she was not injured or in pain. Patient had her fall bracelet on, had her slip proof socks on and used her call light appropriately for staff to assist her with her ambulation. Patient currently resting in her bed eating lunch, her call light is in reach. Call placed to Coverage Specialist Yulia reporting this incident @ 11:55 AM. Call placed to Surgical Charge Nurse Oni @ 12:[address] Calix @ 12:05 PM (Leaving a message) reporting the incident. VSS: BP 152/62; P 62; T 98.0; R 16; Oxygen 97% RA.
[2019-09-17 11:46] VITALS: BP 152/62; PULSE 62; TEMP 98
--- NOTE | 2019-09-17 12:57 | NUR ---
Patient resting in bed at this time awaiting her afternoon therapy. Will continue to monitor.
[2019-09-17 17:15] VITALS: BP 158/60; PULSE 54; TEMP 97.9
--- NOTE | 2019-09-17 17:42 | NUR ---
Patient resting in bed reading a book at this time. Patient tolerating meals this shift not eating all of them, but about 50%.
--- NOTE | 2019-09-17 20:50 | NUR ---
Patient rests in bed watching TV. Alert and oriented x 4. Reports pain down left side of back possibly from nu-step in therapy. HS meds along with tylenol reviewed and taken 1-2 at a time. Declines SCD's at this time.
--- NOTE | 2019-09-18 02:12 | NUR ---
Rests with eyes closed respirations with ease.
[2019-09-18 03:31] VITALS: BP 171/65; PULSE 65; TEMP 97.8
--- NOTE | 2019-09-18 04:15 | NUR ---
Patient called for assist to the bathroom. Up x 2 assist to BSC and voids. Assisted back to bed. Has been continent through the night.
--- NOTE | 2019-09-18 05:43 | NUR ---
PATIENT STATES SHE SLEPT WELL LAST NIGHT.
--- NOTE | 2019-09-18 06:45 | NUR ---
Bedside shift report received from ANNALISA Peñaloza. Pt in bed resting, feeling well, denies needs, will continue to monitor.
--- NOTE | 2019-09-18 09:18 | NUR ---
Assessment charted. Pt resting at side of bed. Able to take all am meds with applesauce on her own. Denies pain. PICC to BORA flushes well and good blood return. Feeling well, per pt she has "come along way since i first got here". RL sounds are diminished, L lung sounds clear. Had a bowel movement htis am but was incontinent on way to bathroom. Denies needs, will continue to monitor.
--- NOTE | 2019-09-18 10:21 | NUR ---
Called Dr. Hummel per Dr. Calix to come and re-evaluate for myasthenia gravis, and look at current medication regimen.
--- NOTE | 2019-09-18 15:44 | NUR ---
pattern worker met with patient and provided team conference notes. Worker notified of discharge date on September 27. Worker and patient discuss home health recommendation and also obtaining a wheelchair and/or front wheeled walker. Patient stated her spouse was looking for a walker. Patient stated that her insurance company has never assisted with payment of either pieces of equipment.
[2019-09-18 15:54] VITALS: BP 126/55; PULSE 65; TEMP 98.1
--- NOTE | 2019-09-18 17:40 | NUR ---
Pt has done well over shift. Had no episodes of tiring when up today with nurisng staff. Taking PO well. Resting in bed. Will give bedside shift report [facility] who will resume care.
--- NOTE | 2019-09-18 21:00 | NUR ---
PT RESTING IN BED. C/O BACK ACHING. SEE MAR FOR TYLENOL GIVEN AND KPAD STARTED. PT TO BSC TO VOID. LEGS ALITTLE WOBBLY. NO THER COMPLAINTS. CALL LIGHT IN REACH. BED ALARM SET.
[2019-09-19 05:37] VITALS: BP 159/58; PULSE 68; TEMP 98.3
--- NOTE | 2019-09-19 06:30 | NUR ---
RECEIVED SHIFT REPORT FROM ORDER CALLER NURSE YESSICA
--- NOTE | 2019-09-19 15:09 | NUR ---
LEIGHANN met with the patient regarding home health and DME. LEIGHANN provided the medicare.gov list of home health agencies for [place]. The patient reports she would like to discuss the options with her this day before making a decision aobut DME or home health. LEIGHANN will continue to follow.
[2019-09-19 16:30] VITALS: BP 147/55; PULSE 63; TEMP 98.1
--- NOTE | 2019-09-19 18:01 | NUR ---
Pt cely increased amb with gait belt and walker, Dr. Calix aware of pt being assisted to the floor earlier this week, pt denies any injury from incident. Pt requests not to receive morning dose of mestonin and will report to mortising machine operator, informed pt she has right to refuse. Tylenol for pain at supper, SSI given by RN in training. Denies nausea, no fever, states sputum is "light" colored.
--- NOTE | 2019-09-20 01:53 | NUR ---
PATIENT DOING WELL TONIGHT. TOOK SCHEDULED MEDS PRESCRIBED. DISCUSSED WITH PATIENT THE REFUSAL OF MORNING MESTINON DOSE, WILL HOLD. DENIES PAIN OR NEED FOR PAIN MEDICATION. PATIENT X1 ASSIST PIVOT TO BEDSIDE COMMODE PER PATIENT REQUEST. PICC TO BARONE ADONIS, CAPS CHANGED. NO FURTHER NEEDS AT THIS TIME. WILL CONTINUE TO MONITOR.
[2019-09-20 02:38] VITALS: BP 169/61; PULSE 65; TEMP 98.3
--- NOTE | 2019-09-20 09:26 | NUR ---
Report from ANNALISA Bailey. Pt sitting bedside to take her pills from RN in training. Pt refused her morning dose only of mestonin, Dr. Calix requests Dr. Hummel be consulted on this. Pt had BM with ANNALISA Capps this morning. Took pills whole with applesauce. Congratulated on her anniversary.
--- NOTE | 2019-09-20 13:47 | NUR ---
SHIFT REPORT RECEIVED FROM CHARGE WEIGHER NURSE RAIZA. PATIENT HAD BM TODAY, CONTINUES CONTINENT VOIDING OF CLEAR YELLOW URINE. DENIES PROBLEMS WITH VOIDING CURRENTLY. ON ROOM AIR.
--- NOTE | 2019-09-20 16:00 | NUR ---
PICC intact right upper arm. With sterile technique right upper arm PICC dressing change done with insertion site cleansed with ChloraPrep 1, chlorhexidine impregnated disc applied, skin prep, StatLock, and Tegaderm applied. No signs or symptoms of IV complications noted. No concerns voiced. Arm wrapped with Bill to protect catheter.
[2019-09-20 16:49] VITALS: BP 137/58; PULSE 62; TEMP 98
--- NOTE | 2019-09-20 17:53 | NUR ---
Note changes to Génesis's assessment: dyspnea on exertion, no nausea, voids, rt heel has one flaky area from resolving blister. PICC to STEPHANIE. Pt's visiting, celebrating 45 anniversary.
--- NOTE | 2019-09-20 18:30 | NUR ---
REPORT GIVEN TO ENCHILADA MAKER NURSE MARIAN
--- NOTE | 2019-09-21 02:49 | NUR ---
Patient rests with eyes closed. Respirations with ease.
--- NOTE | 2019-09-21 05:29 | NUR ---
PATIENT HAS BEEN RESTING WITH EYES CLOSED. RESPIRATIONS WITH EASE.
[2019-09-21 05:43] VITALS: BP 142/60; PULSE 60; TEMP 98.1
--- NOTE | 2019-09-21 08:08 | NUR ---
Patient resting in bed at this time, reporting slept well last night. Patient was able to dress herself this morning only needing assistance to stand up so she could pull her pants by herself. Patient has 2/10 pain this morning in middle of her back. Given prn tylenol. Will continue to monitor.
--- NOTE | 2019-09-21 12:26 | NUR ---
Patient resting in bed at this time, call light in reach and bed alarm is on. She is eating her lunch at this time. Denies pain this AM.
--- NOTE | 2019-09-21 16:39 | NUR ---
Patient has requested to not be served any tea. He does not like tea. This was communicated through fax to dietary.
[2019-09-21 16:52] VITALS: BP 121/47; PULSE 59; TEMP 97.9
--- NOTE | 2019-09-21 21:00 | NUR ---
Patient rests in bed watching TV. Denies need for tylenol at this time. Declines snack. HS meds all reviewed and taken 1-2 at a time without problems.
--- NOTE | 2019-09-21 22:55 | NUR ---
Patient rests with eyes closed. Respirations with ease.
--- NOTE | 2019-09-22 03:01 | NUR ---
Patient rests with eyes closed. Respirations with ease.
[2019-09-22 04:45] VITALS: BP 139/59; PULSE 61; TEMP 98.1
--- NOTE | 2019-09-22 04:52 | NUR ---
Patient just returned from the bathroom reports generalized achyness and tylenol given per request.
--- NOTE | 2019-09-22 09:44 | NUR ---
Patient resting in bed at this time, call light in reach and bed alarm is on. This nurse did range of motion exercises with patient this morning. Patient was able to move his right foot slightly when asked this morning. His external catheter remains in place at this time causing no discomfort. He is having good urine output. Denies pain this morning. Tolerated diet well this morning. Will continue to monitor.
--- NOTE | 2019-09-22 14:46 | NUR ---
Patient resting in bed at this time. This nurse took her for a walk around surgical today and back to her room. She used her walker and gait belt was on. No episodes of embalance.
[2019-09-22 16:29] VITALS: BP 121/49; PULSE 60; TEMP 98
[2019-09-22 17:06] VITALS: BP 138/65
--- NOTE | 2019-09-22 20:15 | NUR ---
Pt. sitting up in bed at this time. Pt. is A&OX3, assessment complete. PICC to rt. upper arm patent. Pt. reports mild aches and pains. Pt. requested Tylenol, gave per orders. Pt. denies further needs, call light within reach.
[2019-09-23 03:09] VITALS: BP 150/67; PULSE 58; TEMP 98.9
--- NOTE | 2019-09-23 09:58 | NUR ---
Report from ANNALISA Benson. ANNALISA Capps in training to provide total pt cares today. Plan to discharge home today with HH, PT, OT. Will ask about PICC and prednisone and hyperglycemia. Pt cely room air since prior to 09/06/19.
[2019-09-23] MEDS ORDERED: MESTINON 6060 MG/TAB PO (10:44)
[2019-09-23] MEDS ORDERED: INCRUSE EL62.5 MCG/A IH ×2 (10:45)
[2019-09-23] MEDS ORDERED: NORVASC 10MG10 MG PO (10:47)
[2019-09-23] MEDS ORDERED: TYLENOL 325MG325 MG PO (10:48)
[2019-09-23] MEDS ORDERED: ALDACTONE50 MG PO (10:48)
[2019-09-23] MEDS ORDERED: PREDNISONE20 MG PO (10:49)
--- NOTE | 2019-09-23 12:44 | NUR ---
REPORT RECEIVED FROM MILLWRIGHT INSTRUCTOR NURSE. PATIENT UP WITH WALKER/GAIT BELT CGA, REPORTED BACK PAIN BEFORE BREAKFAST, GIVEN MEDS WITH NO FURTHER NEEDS REPORTED. EXPECTED TO GO HOME W/HOME HEALTH TO DAY, WAITING ON DOCTOR ROUNDS FOR ORDERS. PICC LINE CONTINUES, FLUSH NOT DONE SCHEDULED DUE TO ANTICIPATED DISCHARGE.
--- NOTE | 2019-09-23 13:47 | NUR ---
PICC LINE REMOVED PER HOSPITAL POLICY BY LELA FANG. PATIENT RESTING WITH NO NEEDS REPORTED CURRENTLY.
--- NOTE | 2019-09-23 15:04 | NUR ---
Agree with Génesis's assessment except: no edema, sputum is light yellow, right heel is healed completely, PICC is in RUE, now removed.
--- NOTE | 2019-09-23 15:46 | NUR ---
Section Leader met with patient and patient's , Stephan (ph#[phone]) about discharge planning. Patient and patient's chose [facility] for Home Health. LEIGHANN faxed referral. LEIHGANN presented Patient Choice Form for DME providers in the area. Per PT's recommendation, patient requires a front wheeled walker upon discharge which is to occur today. Patient chose [facility] and signed the choice form. LEIGHANN placed signed form in the patient's chart. LEIGHANN completed a prescription form for a front wheeled walker and obtained signature from hospitalist. LEIGHANN faxed prescription and referral information to [facility]. Patient expressed interest in also obtaining a wheelchair. LEIGHANN contacted [facility] and faxed additional requested information. LEIGHANN was then contacted by Remedios at [facility] who advised based on PT notes, a wheelchair would not be covered by patient insurance. [facility] to deliver front wheeled walker this afternoon prior to patient discharge. Patient's expressed he would work on purchasing a wheelchair for patient. No additional concerns at this time.
--- NOTE | 2019-09-23 16:25 | NUR ---
Pt discharged by ANNALISA Capps at this time.
--- NOTE | 2019-09-23 16:25 | NUR ---
Faxed order for chest and Abd CT to radiology with face sheet and progress note that mentioned need for f/u of chest CT, received "OK" fax receipt.
--- NOTE | 2019-09-23 16:35 | NUR ---
PATIENT DISMISSED PER WHEEL CHAIR WITH PERSONAL WALKER. SPOUSE, ANTONY, TO TRANSPORT PATIENT HOME PER PRIVATE VEHICLE. NO FURTHER QUESTIONS REPORTED AT TIME OF DISMISSAL.
--- NOTE | 2019-09-23 18:00 | NUR ---
PATIENT'S PERSONAL BELONGINGS OF DENTURES, GLASSES, CLOTHING (SLIPPERS,SHIRT,PANTS) ALL SENT WITH PATIENT/SPOUSE. MEDS FROM HOME VERIFIED WITH SPOUSE CRESTOR AND OMEPRAZOLE, AND DISPENSED DURING IPR STAY, RETURNED TO PATIENT/SPOUSE, SEE FORMS SIGNED REFLECTING THIS. PATIENT HEALTH SUMMARY, DISHCARGE SUMMARY, AND HOME MEDS, PRINTED AND REVIEWED WITH PATIENT AND SPOUSE. STRESSED IMPROTANCE OF FOLLOW UP APPOINTMENTS. REVIEWED MEDICATIONS. BELONGINGS GATHERED BY STAFF. PATIENT TRANSPORTED VIA WHEELCHAIR BY NURSE AND SEATBELTED FOR RIDE TO HOME. PATIENT AND SPOUSE DENIED QUESTIONS.
--- NOTE | 2019-09-24 14:01 | NUR ---
Discharge QIM scores were reviewed by the team. Code of 4 chosen for toileting hygiene was determined by team discussion to be the most usual performance for this patient during the assessment period. Code of 4 chosen for toilet transfers was determined by team discussion to be the most usual performance for this patient during the assessment period. Code of 6 chosen for upper body dressing was determined by team discussion to be the most usual performance for this patient during the assessment period. Code of 5 chosen for lower body dressing was determined by team discussion to be the most usual performance for this patient during the assessment period. Code of 6 chosen for putting on/taking off footwear was determined by team discussion to be the most usual performance for this patient during the assessment period. Code of 3 chosen for chair/[id number] transfers was determined by team discussion to be the most usual performance for this patient during the assessment period. Code of 4 chosen for car transfers was determined by team discussion to be the most usual performance for this patient during the assessment period. Code of 4 chosen for walk 10 feet was determined by team discussion to be the most usual performance for this patient during the assessment period. Code of 4 chosen for walk 50 feet w/ 2 turns was determined by team discussion to be the most usual performance for this patient during the assessment period. Code of 4 chosen for walk 150 feet was determined by team discussion to be the most usual performance for this patient during the assessment period.--PD Yadira
== END 2019-09-23 16:30 | disposition home health service (06) | DRG 947 ==
PROVIDERS: Hospitalist; Psychiatry & Neurology Neurology; ADMIT Internal Medicine
PROC: 02HV33Z Insertion of Infusion Device into Superior Vena Cava, Percutaneous Approach (ICD-10-PCS; principal; 2019-08-30)
DX: R53.81 Other malaise (principal); G70.01 Myasthenia gravis with (acute) exacerbation; J96.01 Acute respiratory failure with hypoxia; J15.1 Pneumonia due to Pseudomonas; E87.2 Acidosis; J44.0 Chronic obstructive pulmonary disease with (acute) lower respiratory infection; I25.10 Atherosclerotic heart disease of native coronary artery without angina pectoris; D63.8 Anemia in other chronic diseases classified elsewhere; L89.151 Pressure ulcer of sacral region, stage 1; I10 Essential (primary) hypertension; K21.9 Gastro-esophageal reflux disease without esophagitis; E78.5 Hyperlipidemia, unspecified; H02.402 Unspecified ptosis of left eyelid; R73.03 Prediabetes; D50.9 Iron deficiency anemia, unspecified; G47.33 Obstructive sleep apnea (adult) (pediatric); R91.1 Solitary pulmonary nodule; K59.00 Constipation, unspecified; R21 Rash and other nonspecific skin eruption; L30.4 Erythema intertrigo; Z79.02 Long term (current) use of antithrombotics/antiplatelets; Z87.891 Personal history of nicotine dependence; Z88.1 Allergy status to other antibiotic agents; Z88.3 Allergy status to other anti-infective agents
CPT/HCPCS: 99222-AI; 99232-AI; 99233-AI; 99239; A4216; C1751; J1650; J1815; J2185; J7512; Q9967

== ENCOUNTER → 2019-09-30 | Outpatient (CLI) | payer BC, MEDICARE ==
[~2019-09-30] MED LIST: 00186-0370-20 IH; ALDACTONE 25MG25 M1 PO; ALDACTONE50 MG PO; CALCIUM 600MG+D1 TAB PO; COREG 25MG25 MG/TAB PO; CRESTOR 10MG10 MG PO; ENTRESTO 49 MG1 EACH PO; FERROUSAL325 MG PO; FLONASEALLERGY NS; INCRUSE EL62.5 MCG/A IH; IPRATROPIUM BROM3 M1 IH; MESTINON 6060 MG/TAB PO; NORVASC 10MG10 MG PO; PLAVIX 75MG TAB75 MG PO; PREDNISONE20 MG PO; PRILOSEC 20MG20 MG PO; PROAIR HFA0.09 MG/AC IH; RT SPIRIVA18 MCG IH; SINGULAIR 110 MG/TAB PO; TYLENOL 325MG325 MG PO; ZYRTEC10MGCHEW PO
== END ==
LOC: COL.RAD 11:00
DX: D35.02 Benign neoplasm of left adrenal gland (principal); R91.8 Other nonspecific abnormal finding of lung field
CPT/HCPCS: Q9967